=== PATIENT | male | born 1985 | race American Indian/Alaskan Native ===

== ENCOUNTER 2017-01-29 16:07 | Emergency (ER) | payer SELFPAY ==
[2017-01-29 17:04] LABS: Basophils % (Auto) 1.1 % (0.0-1.8); Eosinophils % (Auto) 2.5 % (0.0-4.3); Hematocrit 47.8 % (35.5-45.6); Hemoglobin 15.7 gm/dl (11.8-15.2); Mean Corpuscular HGB Conc 33 % (32-34); Mean Corpuscular Hemoglobin 27 pg (28-32); Mean Corpuscular Volume 82 fl (84-94); Platelet Count 184 K/mm3 (140-440); Red Blood Count 5.82 M/mm3 (3.65-5.03); Red Cell Distribution Width 15.8 % (13.2-15.2); White Blood Count 10.5 K/mm3 (4.5-11.0)
[2017-01-29 17:15] LABS: INR 0.95 (0.87-1.13); Partial Thromboplastin Time 27.2 Sec. (24.2-36.6)
[2017-01-29 17:31] LABS: Alanine Aminotransferase 22 units/L (7-56); Albumin 4.5 g/dL (3.9-5); Albumin/Globulin Ratio 1.3 %; Alkaline Phosphatase 113 units/L (35-129); Anion Gap 21 mmol/L; BUN/Creatinine Ratio 10.83; Blood Urea Nitrogen 13 mg/dL (9-20); Calcium 9.5 mg/dL (8.4-10.2); Carbon Dioxide 23 mmol/L (22-30); Chloride 101.2 mmol/L (98-107); Glucose 84 mg/dL (75-100); Potassium 4.4 mmol/L (3.6-5.0); Sodium 141 mmol/L (137-145); Total Protein 7.9 g/dL (6.3-8.2)
[2017-01-29] MEDS ORDERED: NACL 0.9% 1000 ML 1,000 ML IV ONE (17:33)
--- NOTE | 2017-01-29 17:35 | Cat Scan Report ---
FINAL REPORT EXAM: CT HEAD/BRAIN WO CON HISTORY: AMS/neuro deficits TECHNIQUE: Noncontrast serial axial images from skull base to vertex. PRIORS: None. FINDINGS: There is no midline shift. Ex vacuo changes seen associated with the left lateral ventricle. 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 Wallerian degeneration is seen extending into the brainstem. Basilar cisterns are patent. No acute intracranial hemorrhage is identified. There is an asymmetric hyperdense focus in the region of the left cavernous sinus that measures approximately 12 x 16 millimeters. Mucosal thickening is seen in the left frontal sinus. Mastoid air cells are well aerated. No acute osseous abnormality is identified. IMPRESSION: 1. No acute intracranial hemorrhage is identified. 2. 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 There are currently no studies available for direct comparison. 3. Asymmetric hyperdensity in the region of the left cavernous sinus is noted. This could be related to patient positioning, but possibility neoplastic process such as meningioma is not excluded. This can be further assessed with contrast enhanced MRI.
[2017-01-29 18:49] VITALS: BP 138/95
--- NOTE | 2017-01-29 21:02 | Emergency Department Report ---
HPI - General Chief Complaint: Altered Mental Status Time Seen by Provider: 01/29/17 16:48 - HPI HPI: 32-year-old male presents to the emergency department via EMS after he had a syncopal episode witnessed by friends while getting a haircut just prior to presentation. The patient also had a fall last night but it is unknown whether he tripped or passed out at that time. 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 Patient is visiting from [place] where he lives and has a primary care physician there. It does not appear as if the patient took anything for his symptoms prior to presentation. The story about what has happened appears to be changing. At first the patient says that he woke up this way with some blurry vision and some mild confusion after a nap. However friends say that is not true and he appeared to pass out. The patient does not complaining of any current blurry vision. He denies any chest pain, shortness breath, fever, nausea, vomiting. ED Past Medical Hx - Past Medical History Previous Medical History?: Yes Hx Hypertension: Yes Hx CVA: Yes (residual R-side weakness (August 2016)) - Surgical History Past Surgical History?: No - Medications Home Medications: Home Medications Medication Instructions Recorded Confirmed Last Taken Type Unobtainable 01/29/17 01/29/17 Unknown History ED Review of Systems ROS: Stated complaint: AMS Other details as noted in HPI Comment: All other systems reviewed and negative Constitutional: denies: chills, fever Eyes: vision change. denies: eye pain, eye discharge ENT: denies: ear pain, throat pain Respiratory: denies: cough, shortness of breath, wheezing Cardiovascular: denies: chest pain, palpitations Gastrointestinal: denies: abdominal pain, nausea, diarrhea Genitourinary: denies: urgency, dysuria Musculoskeletal: denies: back pain, joint swelling, arthralgia Skin: denies: rash, lesions Neurological: confusion. denies: headache Physical Exam - Physical Exam Vital Signs: Vital Signs 01/29/17 01/29/17 01/29/17 16:07 16:10 16:16 Temperature 98.1 F Pulse Rate 94 H 97 H 97 H Respiratory 16 11 L 12 Rate Blood Pressure 133/88 133/88 O2 Sat by Pulse 100 95 100 Oximetry 01/29/17 01/29/17 01/29/17 16:30 16:46 17:00 Temperature Pulse Rate 86 89 95 H Respiratory 18 17 14 Rate Blood Pressure 133/88 146/101 141/80 O2 Sat by Pulse 100 100 Oximetry 01/29/17 01/29/17 17:46 18:00 Temperature Pulse Rate 93 H 91 H Respiratory 13 19 Rate Blood Pressure 143/89 138/95 O2 Sat by Pulse Oximetry Physical Exam: GENERAL: The patient is well-developed well-nourished. HENT: Normocephalic. Atraumatic. Patient has moist mucous membranes. EYES: Extraocular motions are intact. Pupils equal reactive to light bilaterally. NECK: Supple. Trachea is midline. CHEST/LUNGS: Clear to auscultation. There is no respiratory distress noted. HEART/CARDIOVASCULAR: Regular. There is no tachycardia. There is no gallop rub or murmur. ABDOMEN: Abdomen is soft, nontender. Patient has normal bowel sounds. There is no abdominal distention. SKIN: Skin is warm and dry. There is a small laceration and some non-expanding swelling to the right upper eyelid. NEURO: The patient is awake and able to answer person, place, time appropriately. He does have some intermittent aphasia but no actual slurred speech. There is some occasional stuttering. The patient is cooperative. Patient is able to ambulate with a slight limp secondary to chronic right lower extremity weakness. He has some chronic right distal upper extremity weakness. MUSCULOSKELETAL: There is no tenderness or deformity. Cap refill less than 2 seconds. Radial pulse +2 over 4 bilaterally. There is no evidence of acute injury. ED Course Vital Signs 01/29/17 01/29/17 01/29/17 16:07 16:10 16:16 Temperature 98.1 F Pulse Rate 94 H 97 H 97 H Respiratory 16 11 L 12 Rate Blood Pressure 133/88 133/88 O2 Sat by Pulse 100 95 100 Oximetry 01/29/17 01/29/17 01/29/17 16:30 16:46 17:00 Temperature Pulse Rate 86 89 95 H Respiratory 18 17 14 Rate Blood Pressure 133/88 146/101 141/80 O2 Sat by Pulse 100 100 Oximetry 01/29/17 01/29/17 17:46 18:00 Temperature Pulse Rate 93 H 91 H Respiratory 13 19 Rate Blood Pressure 143/89 138/95 O2 Sat by Pulse Oximetry - Consultations Consultation #1: [facility] heart cardiology was contacted about the first EKG with concerns for the ST elevations and depressions. Dr. Yang and TADEO Garcia came down and briefly saw the patient in the emergency department and the multiple EKGs and did not feel the patient needed to go to the [facility] for STEMI activation but did recommend further EKG, further workup and admission to the hospital. 01/29/17 21:06 ED Medical Decision Making - Lab Data Result diagrams: 01/29/17 16:34 01/29/17 16:34 - EKG Data -: EKG Interpreted by Me EKG shows normal: sinus rhythm, axis, intervals, QRS complexes, ST-T waves (ST elevation to the lateral leads 1 and aVL, ST depressions and T-wave inversions to the inferior leads 2 and aVF) Rate: normal - EKG Data When compared to previous EKG there are: previous EKG unavailable Interpretation: other (ST elevation to some of the lateral leads and ST depressions to the inferior leads ) Repeat EKG at 1628 shows sinus rhythm, normal rate and some mild ST elevations to the lateral leads 1 and aVL and some mild depressions to inferior leads 3 and aVF but improved from previous EKG 8 minutes prior. Repeat EKG at 1637 is similar to previous EKG at 1628 but once again shows improvement in the inferior and lateral leads and lateral leads appear more consistent with early repolarization at this point 01/29/17 21:05 - Radiology Data Radiology results: report reviewed, image reviewed interpreted by me: Chest x-ray does not show any acute process. There are no pleural effusions, obvious pneumonia and there is no pneumothorax. X-ray of the right hand does not show any fracture, dislocation or any acute process. EXAM: CT HEAD/BRAIN WO CON HISTORY: AMS/neuro deficits TECHNIQUE: Noncontrast serial axial images from skull base to vertex. PRIORS: None. FINDINGS: There is no midline shift. Ex vacuo changes seen associated with the left lateral ventricle. 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 Wallerian degeneration is seen extending into the brainstem. Basilar cisterns are patent. No acute intracranial hemorrhage is identified. There is an asymmetric hyperdense focus in the region of the left cavernous sinus that measures approximately 12 x 16 millimeters. Mucosal thickening is seen in the left frontal sinus. Mastoid air cells are well aerated. No acute osseous abnormality is identified. IMPRESSION: 1. No acute intracranial hemorrhage is identified. 2. 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 There are currently no studies available for direct comparison. 3. Asymmetric hyperdensity in the region of the left cavernous sinus is noted. This could be related to patient positioning, but possibility neoplastic process such as meningioma is not excluded. This can be further assessed with contrast enhanced MRI. - Medical Decision Making This is a 32-year-old male presents to the emergency department after he had what appears to be some transient altered mental status and/or syncopal episode prior to presentation as well as some other type of event or fall last night but there is a poor history. First thing occurred was an EKG was presented to me for this patient that appeared concerning for possible ST elevation TX. I contacted the outdoor studies professor, Dr. Gaitan, who looked at the EKG and sent his colleague to the emergency department to speak with me and possibly evaluate the patient. While in the emergency department there were further EKGs done and it showed some improvement in the ST wave changes and EKG morphology that appeared less concerning for active ST elevation TX and it also does not appear to fit with the patient's symptoms as he is awake and alert and has no complaint of any chest pain or shortness of breath or back pain. For this reason they've recommended further workup and admission and they're happy to consult if necessary. A CT of the head was done that did not show any acute cranial hemorrhage or obvious ischemic changes. There is some sequela found from previous infarct. There is also an asymmetric hyperdensity noticed in the left cavernous sinus that could've been positioning but needed possible further workup. Patient complained of some left hand pain so a hand x-ray was done along with the chest x-ray and both did not appear to show any acute process. The patient's labs are mostly unremarkable except for a elevated and equivocal d -dimer. For this reason a CT angiography of the chest was ordered. The plan was going to be for further workup and admission but the patient says that he does not want any further testing done and he wants to be discharged home. Myself and multiple nurses spoke to the patient in great detail regarding the abnormal EKG, the abnormal CT scan of the head and the need for further workup and admission. The patient understands that he could've had a TIA versus CVA, he could have a atypical TX, and that any of these that they've him with worsening debility, pain, heart attack, stroke, coma and/or . Despite this the patient still wants to leave. Despite previously appearing confused, patient is AAO 3 and does answer questions appropriately. He just has some residual deficits that includes some mild aphasia and/or occasional confusion. Friends confirm that the patient is at his baseline mental status and the patient is his own medical decision maker. All these reasons the patient was allowed to sign out AGAINST MEDICAL ADVICE but was encouraged to return to the emergency department immediately if he changes his mind. - Differential Diagnosis CVA, TIA, TX, seizure Critical Care Time: No Critical care attestation.: If time is entered above; I have spent that time in minutes in the direct care of this critically ill patient, excluding procedure time. ED Disposition Clinical Impression: Abnormal EKG, Elevated d-dimer, Abnormal CT scan of head Syncope Qualifiers: Syncope type: unspecified Qualified Code(s): R55 - Syncope and collapse Disposition: DC-07 LEFT AGAINST MED ADVICE Is pt being admited?: No Condition: Fair Instructions: Syncope (ED) Referrals: PRIMARY CARE, [Primary Care Provider] - 3-5 Days Time of Disposition: 21:17
--- NOTE | 2017-01-30 09:14 | XRay Report ---
Single view chest: History: Syncope. Findings: Normal cardiomediastinal silhouette. Trachea is midline. No consolidation, pneumothorax or pleural effusion. Impression: No acute cardiopulmonary findings.
--- NOTE | 2017-01-30 09:15 | XRay Report ---
Right hand 2 views: History: Swollen right pinky. Findings: There is fracture noted at the base of the middle phalanx right fifth finger. No displacement of fracture fragments. The articular surfaces appears unremarkable. Impression: Fracture middle phalanx fifth finger right hand.
== END 2017-01-29 18:50 | disposition left against medical advice (07) ==
LOC: ED 16:07
DX: R55 Syncope and collapse (principal); R94.31 Abnormal electrocardiogram [ECG] [EKG]; R93.0 Abnormal findings on diagnostic imaging of skull and head, not elsewhere classified; R79.1 Abnormal coagulation profile; I10 Essential (primary) hypertension
CPT/HCPCS: 36415; 70450; 71010; 73120; 80053; 84484; 85025; 85379; 85610; 85730; 93005; 93010; 96360; 99285; J7030